=== PATIENT | female | born 2000 ===

== ENCOUNTER 2018-11-18 21:11 | Emergency (ER) | payer SELFPAY ==
[2018-11-18 22:30] VITALS: BP 120/77
[2018-11-18] MEDS ORDERED: ONDANSETRON 4 MG TAB.RAPDIS PO ONE (23:38)
[2018-11-18] MEDS ORDERED: OXYCODONE-ACETAMINOPHEN 5-325 MG TABLET PO ONE (23:38)
--- NOTE | 2018-11-18 23:40 | ER Document Report ---
ED Medical Screen (RME) - General Chief Complaint: Flank Pain Stated Complaint: LEFT FLANK PAIN Time Seen by Provider: 11/18/18 23:38 Notes: 18-year-old female with chief complaint of left flank pain that started this evening, radiates to the side but not to the abdomen, denies trauma, reports nausea with it. She denies vomiting, fever. Denies vaginal discharge or bleeding, reports intermittent mild dysuria. Denies history of kidney stones. Takes control, denies past medical history. TRAVEL OUTSIDE OF THE [place] IN LAST 30 DAYS: No - Related Data Allergies/Adverse Reactions: No Known Allergies Allergy (Unverified 11/18/18 21:12) Physical Exam - Vital signs Vitals: Temp Pulse Resp BP Pulse Ox 98.5 F 82 16 120/77 98 11/18/18 22:27 11/18/18 22:27 11/18/18 22:27 11/18/18 22:27 11/18/18 22:27 - Abdominal Inspection: Normal Tenderness: Nontender - Back Back: CVA tenderness - There does appear to be left-sided CVA tenderness, right is unremarkable Course - Re-evaluation Re-evalutation: I have greeted and performed a rapid initial assessment of this patient. A comprehensive ED assessment and evaluation of the patient, analysis of test results and completion of the medical decision making process will be conducted by additional ED providers. - Vital Signs Vital signs: Temp Pulse Resp BP Pulse Ox 98.5 F 82 16 120/77 98 11/18/18 22:27 11/18/18 22:27 11/18/18 22:27 11/18/18 22:27 11/18/18 22:27
[2018-11-19 00:36] LABS: ABSOLUTE EOSINOPHILS # (AUTO) 0.1 10^3/uL (0.0-0.6); ABSOLUTE LYMPHOCYTES (AUTO) 2.5 10^3/uL (0.5-4.7); ABSOLUTE MONOCYTES (AUTO) 0.5 10^3/uL (0.1-1.4); ABSOLUTE NEUT (AUTO) 4.4 10^3/uL (1.7-8.2); BASOPHILS % (AUTO) 0.6 % (0-2); EOSINOPHILS % (AUTO) 0.8 % (0-6); HEMATOCRIT 41.3 % (36.0-47.0); HEMOGLOBIN 13.9 g/dL (12.0-15.5); LYMPHOCYTES % (AUTO) 33.2 % (13-45); MEAN CORPUSCULAR HEMOGLOBIN 32.2 pg (27.0-33.4); MEAN CORPUSCULAR HGB CONC 33.7 g/dL (32.0-36.0); MEAN CORPUSCULAR VOLUME 95 fl (80-97); MONOCYTES % (AUTO) 7.2 % (3-13); PLATELET COUNT 267 10^3/uL (150-450); RED BLOOD COUNT 4.33 10^6/uL (3.72-5.28); RED CELL DISTRIBUTION WIDTH 13.2 % (11.5-14.0); SEGMENTED NEUTROPHILS % (AUTO) 58.2 % (42-78); TOTAL CELLS COUNTED % (AUTO) 100 %; WHITE BLOOD COUNT 7.6 10^3/uL (4.0-10.5)
[2018-11-19 00:40] LABS: AMORPHOUS SEDIMENT,URINE TRACE /HPF; APPEARANCE,URINE SLIGHTLY-CLOUDY; BILIRUBIN,URINE NEGATIVE (NEGATIVE); COLOR,URINE YELLOW; GLUCOSE, URINE NEGATIVE (NEGATIVE); KETONES,URINE NEGATIVE (NEGATIVE); LEUKOCYTE ESTERASE,URINE TRACE (NEGATIVE); NITRITE,URINE NEGATIVE (NEGATIVE); PROTEIN,URINE NEGATIVE (NEGATIVE); URINE SPECIFIC GRAVITY 1.011; UROBILINOGEN,URINE NEGATIVE mg/dL (<2.0)
[2018-11-19 00:55] LABS: ALANINE AMINOTRANSFERASE 21 U/L (9-52); ALBUMIN 4.5 g/dL (3.5-5.0); ALKALINE PHOSPHATASE 63 U/L (38-126); ANION GAP 10 (5-19); ASPARTATE AMINO TRANSFERASE 21 U/L (14-36); BILIRUBIN,DIRECT 0.2 mg/dL (0.0-0.4); BILIRUBIN,TOTAL 0.2 mg/dL (0.2-1.3); BLOOD UREA NITROGEN 10 mg/dL (7-20); CALCIUM 9.9 mg/dL (8.4-10.2); CARBON DIOXIDE 28 mmol/L (22-30); CHLORIDE 102 mmol/L (98-107); GLUCOSE 77 mg/dL (75-110); POTASSIUM 4.1 mmol/L (3.6-5.0); SODIUM 139.9 mmol/L (137-145); TOTAL PROTEIN 7.3 g/dL (6.3-8.2)
== END 2018-11-19 02:58 | disposition left against medical advice (07) ==
LOC: ER 21:11
DX: Z53.21 Procedure and treatment not carried out due to patient leaving prior to being seen by health care provider (principal); R10.9 Unspecified abdominal pain; R11.0 Nausea; R30.0 Dysuria
CPT/HCPCS: 99281; 36415; 84703; 85025; 80053; 81001; S0119

== ENCOUNTER 2019-02-13 20:05 | Inpatient (IN) | payer OTHER ==
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
[2019-02-13 20:56] LABS: ABSOLUTE BASOPHILS # (AUTO) 0.1 10^3/uL (0.0-0.2); ABSOLUTE LYMPHOCYTES (AUTO) 2.1 10^3/uL (0.5-4.7); ABSOLUTE MONOCYTES (AUTO) 0.5 10^3/uL (0.1-1.4); BASOPHILS % (AUTO) 0.8 % (0-2); EOSINOPHILS % (AUTO) 0.4 % (0-6); HEMATOCRIT 42.5 % (36.0-47.0); HEMOGLOBIN 14.3 g/dL (12.0-15.5); LYMPHOCYTES % (AUTO) 26.9 % (13-45); MEAN CORPUSCULAR HGB CONC 33.5 g/dL (32.0-36.0); MEAN CORPUSCULAR VOLUME 95 fl (80-97); MONOCYTES % (AUTO) 6.7 % (3-13); PLATELET COUNT 270 10^3/uL (150-450); RED BLOOD COUNT 4.46 10^6/uL (3.72-5.28); RED CELL DISTRIBUTION WIDTH 13.1 % (11.5-14.0); SEGMENTED NEUTROPHILS % (AUTO) 65.2 % (42-78); TOTAL CELLS COUNTED % (AUTO) 100 %; WHITE BLOOD COUNT 7.7 10^3/uL (4.0-10.5)
[2019-02-13 21:01] LABS: APPEARANCE,URINE CLEAR; BILIRUBIN,URINE NEGATIVE (NEGATIVE); COLOR,URINE STRAW; GLUCOSE, URINE NEGATIVE (NEGATIVE); KETONES,URINE NEGATIVE (NEGATIVE); LEUKOCYTE ESTERASE,URINE NEGATIVE (NEGATIVE); NITRITE,URINE NEGATIVE (NEGATIVE); PROTEIN,URINE NEGATIVE (NEGATIVE); URINE SPECIFIC GRAVITY 1.012; UROBILINOGEN,URINE NEGATIVE mg/dL (<2.0)
[2019-02-13 21:15] LABS: URINE AMPHETAMINES SCREEN NEGATIVE; URINE BARBITURATES SCREEN NEGATIVE; URINE BENZODIAZEPINES SCREEN NEGATIVE; URINE COCAINE SCREEN NEGATIVE; URINE MARIJUANA (THC) SCREEN NEGATIVE; URINE METHADONE SCREEN NEGATIVE; URINE PHENCYCLIDINE SCREEN NEGATIVE
[2019-02-13 21:21] LABS: ALBUMIN 4.6 g/dL (3.5-5.0); ALKALINE PHOSPHATASE 60 U/L (38-126); ANION GAP 13 (5-19); ASPARTATE AMINO TRANSFERASE 80 U/L (14-36); BILIRUBIN,DIRECT 0.2 mg/dL (0.0-0.4); BILIRUBIN,TOTAL 0.2 mg/dL (0.2-1.3); BLOOD UREA NITROGEN 14 mg/dL (7-20); CALCIUM 10.3 mg/dL (8.4-10.2); CARBON DIOXIDE 25 mmol/L (22-30); CHLORIDE 102 mmol/L (98-107); GLUCOSE 102 mg/dL (75-110); POTASSIUM 4.1 mmol/L (3.6-5.0); SALICYLATE 1.1 mg/dL (2.0-20.0); TOTAL PROTEIN 7.4 g/dL (6.3-8.2)
[2019-02-13] MEDS ORDERED: ACTIVATED CHARCOAL 25 GM BOTTLE PO ONE (21:26)
[2019-02-13 21:28] LABS: ALCOHOL < 10 mg/dL (NONE DETECTED)
[2019-02-13] MEDS ORDERED: ACETYLCYSTEINE 20% SOLN 800 MG/4 ML VIAL.NEB PO ONE (21:28)
--- NOTE | 2019-02-13 21:29 | ER Document Report ---
ED General - General Chief Complaint: Overdose Stated Complaint: TOOK EXTRA TYLENOL Time Seen by Provider: 02/13/19 20:21 Notes: 18-year-old female depression presents with Tylenol overdose. Took about 25 tablets of 500 Milgram Tylenol at about 8 PM. No vomiting no coingestions. Has mild nausea and stomach pain. She is had this in the past. She has had suicidal ideation in the past. She comes in with family member. TRAVEL OUTSIDE OF THE [place] IN LAST 30 DAYS: No - Related Data Allergies/Adverse Reactions: No Known Allergies Allergy (Unverified 11/18/18 21:12) Past Medical History - Social History Smoking Status: Never Smoker Chew tobacco use (# tins/day): No Frequency of alcohol use: Occasional Drug Abuse: None Family History: None Patient has suicidal ideation: Yes Patient has homicidal ideation: No Renal/ Medical History: Denies: Hx Peritoneal Dialysis Psychiatric Medical History: Reports: Hx Depression Review of Systems - Review of Systems Notes: REVIEW OF SYSTEMS GEN: Denies fever, chills, weight loss ENT: Denies sore throat, nasal discharge, ear pain EYES: Denies blurry vision, eye pain, discharge CV: Denies chest pain, palpitations, edema RESP: Denies cough, shortness of breath, wheezing GI: Aminal pain and nausea MSK: Denies joint pain/swelling, edema, SKIN: Denies rash, skin lesions LYMPH: Denies swollen glands/lymph nodes NEURO: Denies headache, focal weakness or numbness, dizziness PSYCH: Denies depression, suicidal or homicidal ideation PHYSICAL EXAMINATION General: No acute distress, well-nourished Head: Atraumatic, normocephalic ENT: Mouth normal, oropharynx moist, no exudates or tonsillar enlargement Eyes: Conjunctiva normal, pupils equal, lids normal Neck: No JVD, supple, no guarding CVS: Normal rate, regular rhythm, no murmurs Resp: No resp distress, equal and normal breath sounds bilaterally GI: Nondistended, soft, no tenderness to palpation, no rebound or guarding Ext: No deformities, no edema, normal range of motion in upper and lower ext Back: No CVA or midline TTP Skin: No rash, warm Lymphatic: No lymphadeopathy noted Neuro: Awake, alert. Face symmetric. GCS 15. Physical Exam - Vital signs Vitals: Temp Pulse Resp BP Pulse Ox 98.2 F 96 14 117/69 97 02/13/19 20:20 02/13/19 20:20 02/13/19 20:20 02/13/19 20:20 02/13/19 20:20 Course - Re-evaluation Re-evalutation: 02/13/19 21:28 Purposeful Tylenol overdose which may approach the toxic dose for her weight. I will give her activated charcoal immediately. A 4-hour Tylenol level will be drawn about 10:15 PM. We will also check LFTs and consider giving knack, will give poison control guidance. 02/13/19 23:36 Patient's Tylenol level is elevated. She already got charcoal and will now receive N-acetylcysteine orally. She tolerated this well. Her LFTs are normal. I have ordered every 4 acetylcysteine per poison control. Initially I spoke with [facility] to transfer her up and I spoke with hospitalist Dr. Ortega, who states that she can be admitted here. I placed her on IVC papers. - Vital Signs Vital signs: Temp Pulse Resp BP Pulse Ox 98.2 F 96 14 117/69 97 02/13/19 20:20 02/13/19 20:20 02/13/19 20:20 02/13/19 20:20 02/13/19 20:20 - Laboratory Result Diagrams: 02/13/19 20:45 02/13/19 20:45 Laboratory results interpreted by me: 02/13/19 02/13/19 20:45 20:45 Calcium 10.3 H AST 80 H Salicylates 1.1 L Acetaminophen 150 H* - EKG Interpretation by Me EKG shows normal: Sinus rhythm Rate: Normal Rhythm: NSR Critical Care Note - Critical Care Note Total time excluding time spent on procedures (mins): 32 Comments: The above patient is critically ill. Not including procedures, but including direct re-evaluations, speaking with patient and/or consultants, interpreting results, and documenting, I spent the total amount of minute listed listed above on critical care time Discharge - Discharge Clinical Impression: Tylenol overdose Qualifiers: Encounter type: initial encounter Injury intent: intentional self-harm Qualified Code(s): T39.1X2A - Poisoning by 4-Aminophenol derivatives, intentional self-harm, initial encounter Condition: Good Disposition: ADMITTED INPATIENT Admitting Provider: Doroteo (Hospitalist) Unit Admitted: Telemetry
[2019-02-13] MEDS ORDERED: ONDANSETRON HCL INJ/PF 4 MG/2 ML SDV IV PRN (23:28)
[2019-02-13] MEDS ORDERED: MAG HYDROX/AL HYDROX/SIMETH SUSP 30 ML UDCUP PO PRN (23:28)
[2019-02-13] MEDS ORDERED: MAGNESIUM HYDROXIDE SUSP 30 ML UDCUP PO PRN (23:28)
--- NOTE | 2019-02-14 00:32 | EKG REPORT ---
SEVERITY:- NORMAL ECG - SINUS RHYTHM : Confirmed by: Cyrus Jones 14-Feb-2019 00:32:23
[2019-02-14 00:48] LABS: INTERNATIONAL RATION (INR) 0.93; PROTHROMBIN TIME 12.5 SEC (11.4-15.4)
[2019-02-14 00:49] LABS: PARTIAL THROMBOPLASTIN TIME 27.1 SEC (23.5-35.8)
--- NOTE | 2019-02-14 00:53 | PDOC H&P ---
History of Present Illness Admission Date/PCP: 02/13/19 23:29 Patient complains of: I could not tolerate the pain and took 25 Tylenol tablets History of Present Illness: REGAN JOYA is a 18 year old female with a history of bipolar disorder diagnosed about 5 years ago for which she is not getting any current management, who presented to the emergency room after taking 25 tablets of Tylenol 500 mg each. She stated that she was trying to get the pain away but partly admitted that she has had an argument with her as well as 2 previ ous suicide attempt 5 years ago when she was diagnosed with bipolar. She admitted to nausea without vomiting. She has been having occasional dysuria. She stated that her pain is been in both hips and occasionally in her lower abdomen. She denies any hematuria or urinary frequency or urgency. She has mild headache without dizziness or blurred vision. She denies any fever or chills. Upon presentation to the emergency room, blood pressure was 128/90 with a pulse of 86 and respiratory rate of 28 and later 14, pulse oximetry 100% on room air. LabS revealed a Tylenol level of 150 and were otherwise remarkable for AST of 80 with normal ALT of 30 and alk phos of 60 and total bili of 0.2. Calcium was 10.3. CBC and CMP otherwise were within normal. I ordered stat coagulation profile including PT/INR. EKG showed normal sinus rhythm with a rate of 79. The patient had involuntary commitment by the ER physician. The patient was given 25 g of p.o. charcoal and 850 mg p.o. Mucomyst was ordered 70 mg/kg p.o. every 4 hours. She will be admitted to a medically monitored bed for further management of Tylenol toxicity. Past Medical History Psychiatric Medical History: Reports: Bipolar Disorder, Depression - Previous suicide attempt 5 years ago Past Surgical History Past Surgical History: Reports: Other - [place] tooth extraction Social History Smoking Status: Former Smoker Frequency of Alcohol Use: Rare Drugs: None Hx Prescription Drug Abuse: No Family History Family History: CAD, CVA, DM, Malignancy Parental Family History Reviewed: Yes Children Family History Reviewed: Yes Sibling(s) Family History Reviewed.: Yes Medication/Allergy Home Medications: No Home Medications 02/13/19 Allergies/Adverse Reactions: No Known Allergies Allergy (Unverified 11/18/18 21:12) Review of Systems Review of Systems: As per history of present illness. All pertinent systems were reviewed above. Constitutional, HEENT, cardiovascular, respiratory, GI, , musculoskeletal, neuro, psychiatric, endocrine, integumentary and hematologic systems were reviewed and are otherwise negative/unremarkable except for positive findings mentioned above in the HPI. Physical Exam Vital Signs: Temp Pulse Resp BP Pulse Ox 98.2 F 96 13 113/69 98 02/13/19 20:20 02/13/19 20:20 02/14/19 00:01 02/14/19 00:00 02/14/19 00:01 Intake & Output 02/12/19 02/13/19 02/14/19 06:59 06:59 06:59 Weight 86.183 kg Exam: Generally: Pleasant young female in no acute distress. She has good eye contact Vital signs-as listed Head - atraumatic, normocephalic. Pupils - equal, round and reactive to light and accommodation. Extraocular movements are intact. No scleral icterus. Oropharynx - moist mucous membranes and tongue. No pharyngeal erythema or exudate. Neck - supple. No JVD. Carotid pulses 2+ bilaterally. No carotid bruits. No palpable thyromegaly or lymphadenopathy. Cardiovascular - regular rate and rhythm. Normal S1 and S2. No murmurs, gallops or rubs. Lungs - clear to auscultation bilaterally. Abdomen - soft and nontender. Positive bowel sounds. No palpable organomegaly or masses. Extremities - no pitting edema, clubbing or cyanosis. Neuro - grossly non-focal. Psychiatric-she had good eye contact, with with slightly depressed affect Skin - no rashes. Breast, pelvic and rectal - deferred Results Laboratory Results: 02/13/19 20:45 02/13/19 20:45 02/13/19 02/13/19 02/13/19 20:45 20:45 20:45 WBC 7.7 RBC 4.46 Hgb 14.3 Hct 42.5 MCV 95 MCH 32.0 MCHC 33.5 RDW 13.1 Plt Count 270 Seg Neutrophils % 65.2 Lymphocytes % 26.9 Monocytes % 6.7 Eosinophils % 0.4 Basophils % 0.8 Absolute Neutrophils 5.0 Absolute Lymphocytes 2.1 Absolute Monocytes 0.5 Absolute Eosinophils 0.0 Absolute Basophils 0.1 Sodium 139.6 Potassium 4.1 Chloride 102 Carbon Dioxide 25 Anion Gap 13 BUN 14 Creatinine 0.85 Est GFR ( Amer) > 60 Est GFR (Non-Af Amer) > 60 Glucose 102 Calcium 10.3 H Total Bilirubin 0.2 AST 80 H Alkaline Phosphatase 60 Total Protein 7.4 Albumin 4.6 Urine Color STRAW Urine Appearance CLEAR Urine pH 7.0 Ur Specific [place] 1.012 Urine Protein NEGATIVE Urine Glucose (UA) NEGATIVE Urine Ketones NEGATIVE Urine Blood NEGATIVE Urine Nitrite NEGATIVE Ur Leukocyte Esterase NEGATIVE Urine WBC (Auto) 1 Urine RBC (Auto) 1 Assessment and Plan - Diagnosis (1) Tylenol toxicity Is this a current diagnosis for this admission?: Yes Plan: We will follow Tylenol monogram. She will be managed with Mucomyst 70 mg/kg every 4 hours for 17 doses. Will follow Tylenol levels (2) Suicide attempt Is this a current diagnosis for this admission?: Yes Plan: This is likely the culprit for her tylenol overdose. The patient will be placed on suicide precautions. She will have a sitter. Psychiatry consult will be obtained. (3) Bipolar disorder Is this a current diagnosis for this admission?: Yes Plan: She has not been on treatment for 5 years. Psychiatry consult to be obtained. (4) DVT prophylaxis Is this a current diagnosis for this admission?: Yes Plan: Subcutaneous Lovenox should her INR come back normal - Time Time Spent with patient: 35 or more minutes Medications reviewed and adjusted accordingly: Yes Anticipated discharge: Other - psych discharge likely, s/p IVC - Inpatient Certification Based on my medical assessment, after consideration of the patient's comorbidities, presenting symptoms, or acuity I expect that the services needed warrant INPATIENT care.: Yes I certify that my determination is in accordance with my understanding of Medicare's requirements for reasonable and necessary INPATIENT services [42 CFR 412.3e].: Yes Medical Necessity: Need Close Monitoring Due to Risk of Patient Decompensation, Risk of Complication if Not Cared For in Hospital, Other - SUICIDAL Post Hospital Care: D/C or Transfer Summary - Plan Summary Plan Summary: The plan of care was discussed in details with the patient. I answered all questions. The patient agreed to proceed with the above-mentioned plan. The patient is presumably full code. This note was created by [employer] software and may contain typo errors that may have not been proofread.
[2019-02-14] MEDS ORDERED: ACETYLCYSTEINE 20% SOLN 6000 MG/30 ML VIAL PO SCH (01:30)
[2019-02-14] MEDS: NORMAL SALINE 1000 ML 1,000 ML IV PRN ×3 (03:04→22:29)
[2019-02-14 04:17] LABS: PROTHROMBIN TIME 13.2 SEC (11.4-15.4)
[2019-02-14 04:25] LABS: ABSOLUTE LYMPHOCYTES (AUTO) 1.8 10^3/uL (0.5-4.7); ABSOLUTE MONOCYTES (AUTO) 0.4 10^3/uL (0.1-1.4); ABSOLUTE NEUT (AUTO) 3.4 10^3/uL (1.7-8.2); BASOPHILS % (AUTO) 0.6 % (0-2); EOSINOPHILS % (AUTO) 0.2 % (0-6); HEMATOCRIT 38.8 % (36.0-47.0); HEMOGLOBIN 13.3 g/dL (12.0-15.5); LYMPHOCYTES % (AUTO) 32.4 % (13-45); MEAN CORPUSCULAR HGB CONC 34.2 g/dL (32.0-36.0); MEAN CORPUSCULAR VOLUME 94 fl (80-97); MONOCYTES % (AUTO) 6.3 % (3-13); PLATELET COUNT 251 10^3/uL (150-450); RED BLOOD COUNT 4.14 10^6/uL (3.72-5.28); RED CELL DISTRIBUTION WIDTH 13.2 % (11.5-14.0); SEGMENTED NEUTROPHILS % (AUTO) 60.5 % (42-78); TOTAL CELLS COUNTED % (AUTO) 100 %; WHITE BLOOD COUNT 5.6 10^3/uL (4.0-10.5)
[2019-02-14 04:28] LABS: ALKALINE PHOSPHATASE 54 U/L (38-126); ANION GAP 11 (5-19); ASPARTATE AMINO TRANSFERASE 62 U/L (14-36); BILIRUBIN,DIRECT 0.3 mg/dL (0.0-0.4); BILIRUBIN,TOTAL 0.4 mg/dL (0.2-1.3); BLOOD UREA NITROGEN 12 mg/dL (7-20); CALCIUM 9.3 mg/dL (8.4-10.2); CARBON DIOXIDE 21 mmol/L (22-30); CHLORIDE 107 mmol/L (98-107); GLUCOSE 102 mg/dL (75-110); TOTAL PROTEIN 6.7 g/dL (6.3-8.2)
[2019-02-14] MEDS ORDERED: ACETYLCYSTEINE 20% SOLN 6000 MG/30 ML VIAL PO ONE (04:30)
[2019-02-14] MEDS: ACETYLCYSTEINE 20% SOLN 6000 MG/30 ML VIAL PO SCH ×4 (09:46→20:56)
[2019-02-14] MEDS: ENOXAPARIN SODIUM INJ 40 MG/0.4 ML DISP.SYRIN SUBCUT SCH (09:47)
--- NOTE | 2019-02-14 13:10 | PDOC PROGRESS REPORT ---
Subjective Progress Note for:: 02/14/19 Subjective:: This is 19 years old [place] female patient presented after she overdosed herself with 25 tablets of Tylenol. There is an element of suicide attempt. And IVCed by psych. Patient was diagnosed with bipolar disorder and she was 15 years ago and patient has been on any medication. Patient reports this her mom has mental health issues. Patient has been managed accordingly with hydration and N-acetylcysteine. Her lab evaluation shows that her Tylenol level has decreased from 1 50-70 and her mildly elevated AST also reduced from 8262. Patient seen awake alert oriented x4. She is not in pain or distress. Reason For Visit: TYLENOL OVERDOSE Physical Exam Vital Signs: Temp Pulse Resp BP Pulse Ox 98.2 F 83 18 118/67 100 02/14/19 11:17 02/14/19 11:17 02/14/19 11:17 02/14/19 11:17 02/14/19 11:17 Intake & Output 02/13/19 02/14/19 02/15/19 06:59 06:59 06:59 Intake Total 943 Balance 943 Weight 85.6 kg General appearance: PRESENT: no acute distress Eye exam: PRESENT: conjunctiva pink Neck exam: ABSENT: carotid bruit, JVD, lymphadenopathy, thyromegaly Respiratory exam: PRESENT: clear to auscultation kendall. ABSENT: rales, rhonchi, wheezes Cardiovascular exam: PRESENT: RRR. ABSENT: diastolic murmur, rubs, systolic murmur GI/Abdominal exam: PRESENT: normal bowel sounds, soft. ABSENT: distended, guarding, mass, organolmegaly, rebound, tenderness Neurological exam: PRESENT: alert, awake, oriented to person, oriented to place, oriented to time, oriented to situation Results Laboratory Results: 02/14/19 04:04 02/14/19 04:04 02/13/19 02/13/19 02/13/19 20:45 20:45 20:45 WBC 7.7 RBC 4.46 Hgb 14.3 Hct 42.5 MCV 95 MCH 32.0 MCHC 33.5 RDW 13.1 Plt Count 270 Seg Neutrophils % 65.2 Lymphocytes % 26.9 Monocytes % 6.7 Eosinophils % 0.4 Basophils % 0.8 Absolute Neutrophils 5.0 Absolute Lymphocytes 2.1 Absolute Monocytes 0.5 Absolute Eosinophils 0.0 Absolute Basophils 0.1 Sodium 139.6 Potassium 4.1 Chloride 102 Carbon Dioxide 25 Anion Gap 13 BUN 14 Creatinine 0.85 Est GFR ( Amer) > 60 Est GFR (Non-Af Amer) > 60 Glucose 102 Calcium 10.3 H Total Bilirubin 0.2 AST 80 H Alkaline Phosphatase 60 Total Protein 7.4 Albumin 4.6 Urine Color STRAW Urine Appearance CLEAR Urine pH 7.0 Ur Specific [place] 1.012 Urine Protein NEGATIVE Urine Glucose (UA) NEGATIVE Urine Ketones NEGATIVE Urine Blood NEGATIVE Urine Nitrite NEGATIVE Ur Leukocyte Esterase NEGATIVE Urine WBC (Auto) 1 Urine RBC (Auto) 1 02/14/19 02/14/19 04:04 04:04 WBC 5.6 RBC 4.14 Hgb 13.3 Hct 38.8 MCV 94 MCH 32.0 MCHC 34.2 RDW 13.2 Plt Count 251 Seg Neutrophils % 60.5 Lymphocytes % 32.4 Monocytes % 6.3 Eosinophils % 0.2 Basophils % 0.6 Absolute Neutrophils 3.4 Absolute Lymphocytes 1.8 Absolute Monocytes 0.4 Absolute Eosinophils 0.0 Absolute Basophils 0.0 Sodium 138.7 Potassium 4.0 Chloride 107 Carbon Dioxide 21 L Anion Gap 11 BUN 12 Creatinine 0.75 Est GFR ( Amer) > 60 Est GFR (Non-Af Amer) > 60 Glucose 102 Calcium 9.3 Total Bilirubin 0.4 AST 62 H Alkaline Phosphatase 54 Total Protein 6.7 Albumin 4.0 Urine Color Urine Appearance Urine pH Ur Specific [place] Urine Protein Urine Glucose (UA) Urine Ketones Urine Blood Urine Nitrite Ur Leukocyte Esterase Urine WBC (Auto) Urine RBC (Auto) Assessment and Plan - Diagnosis (1) Tylenol overdose with suicide intention Is this a current diagnosis for this admission?: Yes Plan: Continue N-acetylcysteine. We will follow-up with Poison Control Center. Continue hydration (2) Bipolar disorder Is this a current diagnosis for this admission?: Yes Plan: Management per psych.
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
[2019-02-15] MEDS: ACETYLCYSTEINE 20% SOLN 6000 MG/30 ML VIAL PO SCH ×2 (00:06→04:20)
[2019-02-15 03:13] LABS: ABSOLUTE EOSINOPHILS # (AUTO) 0.1 10^3/uL (0.0-0.6); ABSOLUTE LYMPHOCYTES (AUTO) 2.8 10^3/uL (0.5-4.7); ABSOLUTE MONOCYTES (AUTO) 0.6 10^3/uL (0.1-1.4); ABSOLUTE NEUT (AUTO) 2.6 10^3/uL (1.7-8.2); BASOPHILS % (AUTO) 0.4 % (0-2); EOSINOPHILS % (AUTO) 0.9 % (0-6); HEMATOCRIT 39.2 % (36.0-47.0); HEMOGLOBIN 13.1 g/dL (12.0-15.5); MEAN CORPUSCULAR HEMOGLOBIN 31.6 pg (27.0-33.4); MEAN CORPUSCULAR HGB CONC 33.5 g/dL (32.0-36.0); MEAN CORPUSCULAR VOLUME 94 fl (80-97); MONOCYTES % (AUTO) 9.2 % (3-13); PLATELET COUNT 230 10^3/uL (150-450); RED BLOOD COUNT 4.16 10^6/uL (3.72-5.28); RED CELL DISTRIBUTION WIDTH 13.2 % (11.5-14.0); SEGMENTED NEUTROPHILS % (AUTO) 43.5 % (42-78); TOTAL CELLS COUNTED % (AUTO) 100 %; WHITE BLOOD COUNT 6.1 10^3/uL (4.0-10.5)
[2019-02-15 03:18] LABS: INTERNATIONAL RATION (INR) 1.14; PROTHROMBIN TIME 14.7 SEC (11.4-15.4)
[2019-02-15 03:39] LABS: ALBUMIN 3.6 g/dL (3.5-5.0); ALKALINE PHOSPHATASE 42 U/L (38-126); ANION GAP 8 (5-19); ASPARTATE AMINO TRANSFERASE 33 U/L (14-36); BILIRUBIN,DIRECT 0.2 mg/dL (0.0-0.4); BILIRUBIN,TOTAL 0.2 mg/dL (0.2-1.3); BLOOD UREA NITROGEN 8 mg/dL (7-20); CALCIUM 8.8 mg/dL (8.4-10.2); CARBON DIOXIDE 20 mmol/L (22-30); CHLORIDE 110 mmol/L (98-107); GLUCOSE 79 mg/dL (75-110); POTASSIUM 4.7 mmol/L (3.6-5.0); TOTAL PROTEIN 6.2 g/dL (6.3-8.2)
[2019-02-15] MEDS: FLUOXETINE HCL 20 MG CAPSULE PO SCH (11:36)
[2019-02-15] MEDS: ENOXAPARIN SODIUM INJ 40 MG/0.4 ML DISP.SYRIN SUBCUT SCH (11:39)
--- NOTE | 2019-02-15 14:35 | Progress Note Acknowledgement ---
Progress Note Acknowledgement Progess Note Acknowledgement: I, the undersigned member of the medical staff with appropriate privileges and with supervisory authority over [ PAC ], a dependent practice allied health professional, acknowledge that I have reviewed the progress notes entered on this patient, and in my professional judgment believe that the assessment made and/or any care evidenced was appropriate
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
[2019-02-15] MEDS ORDERED: MAGNESIUM CITRATE 296 ML BOTTLE PO PRN (16:51)
[2019-02-15] MEDS: OLANZAPINE 2.5 MG TABLET PO SCH (17:02)
[2019-02-15] MEDS: DOCUSATE SODIUM 100 MG CAPSULE PO SCH (17:04)
--- NOTE | 2019-02-15 17:25 | PSYCHOLOGICAL NOTE ---
Psych Note - Psych Note Date seen by psych provider: 02/15/19 Time seen by psych provider: 13:23 - Discussion with attending Hospitalist about medical celarance at 1323. Psych Note: Presenting Problem: Tylenol OD, Acetaminophen level was 150 initially. Spoke to attending Hospitalist who identified patient was medically cleared. he also noted medications were just started today. Completed IVC paperwork (1st exam was completed yesterday but not signed by hospitalist). Got First Exam signed since patient officially medically cleared and can seek inpatient hospitalization. [facility] Music Professor went to floor to put IVC paperwork on physical chart. Patient had a doctor and another individual in her room. Attending nurse made aware of plan of care. Diagnosis: Relationship Distress with Spouse MDD R/O Bipolar Impression/Plan: Recommendation for full IVC. Patient had an OD, has relationship distress with spouse, and has Hx of MH and no treatment in 5 years. Medication recommendations were just started today per attending hospitalist. Consulted with Dr. Willoughby regarding the management and care of patient. Attending Hospitalist made aware of recommendations.
[2019-02-16 08:05] LABS: ABSOLUTE EOSINOPHILS # (AUTO) 0.1 10^3/uL (0.0-0.6); ABSOLUTE LYMPHOCYTES (AUTO) 2.2 10^3/uL (0.5-4.7); ABSOLUTE MONOCYTES (AUTO) 0.3 10^3/uL (0.1-1.4); ABSOLUTE NEUT (AUTO) 2.7 10^3/uL (1.7-8.2); BASOPHILS % (AUTO) 0.5 % (0-2); EOSINOPHILS % (AUTO) 1.2 % (0-6); HEMATOCRIT 40.8 % (36.0-47.0); HEMOGLOBIN 13.6 g/dL (12.0-15.5); LYMPHOCYTES % (AUTO) 41.4 % (13-45); MEAN CORPUSCULAR HEMOGLOBIN 31.6 pg (27.0-33.4); MEAN CORPUSCULAR HGB CONC 33.2 g/dL (32.0-36.0); MEAN CORPUSCULAR VOLUME 95 fl (80-97); MONOCYTES % (AUTO) 6.1 % (3-13); PLATELET COUNT 251 10^3/uL (150-450); RED CELL DISTRIBUTION WIDTH 13.4 % (11.5-14.0); SEGMENTED NEUTROPHILS % (AUTO) 50.8 % (42-78); TOTAL CELLS COUNTED % (AUTO) 100 %; WHITE BLOOD COUNT 5.3 10^3/uL (4.0-10.5)
[2019-02-16 08:16] LABS: INTERNATIONAL RATION (INR) 0.99; PROTHROMBIN TIME 13.1 SEC (11.4-15.4)
[2019-02-16 08:33] LABS: ALBUMIN 3.8 g/dL (3.5-5.0); ALKALINE PHOSPHATASE 55 U/L (38-126); ANION GAP 9 (5-19); ASPARTATE AMINO TRANSFERASE 28 U/L (14-36); BILIRUBIN,DIRECT 0.2 mg/dL (0.0-0.4); BILIRUBIN,TOTAL 0.2 mg/dL (0.2-1.3); BLOOD UREA NITROGEN 10 mg/dL (7-20); CARBON DIOXIDE 22 mmol/L (22-30); CHLORIDE 108 mmol/L (98-107); GLUCOSE 80 mg/dL (75-110); POTASSIUM 4.7 mmol/L (3.6-5.0); TOTAL PROTEIN 6.4 g/dL (6.3-8.2)
[2019-02-16] MEDS: FLUOXETINE HCL 20 MG CAPSULE PO SCH (10:00)
[2019-02-16] MEDS: OLANZAPINE 2.5 MG TABLET PO SCH (10:00)
[2019-02-16] MEDS: DOCUSATE SODIUM 100 MG CAPSULE PO SCH (10:00)
[2019-02-16] MEDS: ENOXAPARIN SODIUM INJ 40 MG/0.4 ML DISP.SYRIN SUBCUT SCH (10:13)
[2019-02-16 12:20] VITALS: BP 101/51
--- NOTE | 2019-02-16 18:33 | PDOC DISCHARGE SUMMARY ---
General - Admit/Disc Date/PCP Admission Date/Primary Care Provider: 02/13/19 23:29 She was admitted on 02/13/2019 for acetaminophen overdose Discharge Date: 02/16/19 - Discharge Diagnosis (1) Suicide attempt Is this a current diagnosis for this admission?: Yes Summary: Patient states she has no desire to try and commit suicide again. This is patient's second attempt the first was 5 years ago when she was 13. She has been in place involuntary commitment by psychiatry (2) Tylenol overdose Is this a current diagnosis for this admission?: Yes Summary: When patient was admitted her acetaminophen level was 150, and then went down to 70 went down to 40 and at discharge was less than 10 at all other toxicologies were negative (3) Depression Is this a current diagnosis for this admission?: Yes Summary: She has a history of bipolar depression. Psychiatry recommended starting her on medications and she was started on Prozac 20 mg a day and Zyprexa 2.5 mg a day - Additional Information Resuscitation Status: Full Code Discharge Diet: As Tolerated Discharge Activity: Activity As Tolerated Home Medications: No Home Medications 02/13/19 History of Present Illness History of Present Illness: REGAN JOYA is a 18 year old female Patient was admitted to the hospital for acetaminophen overdose. Patient states she took about 25 tablets, 500 mg each the emergency room patient was given 25 g of charcoal and 850 mg of Mucomyst was ordered 70 mg/kg every 4 hours patient was admitted for medically monitored bed. Patient had no complications as result of her overdose. Hospital Course Hospital Course: Patient's liver functions were slightly elevated on admission her AST was 80 however this went down to 28 her ALT was 30 this went down to 19 total protein was 7.4 went down to 6.4 albumin was 4.6 went down to 3.8 early Jace was co mpletely normal. She was seen by psychiatry and they felt that patient needed to be IVC, and I agreed. Patient is 18 years old she has a 1-year-old child at home and she has a who is in the . Patient is going through a difficult time now concerning her marriage and has no real insight into her depression Physical Exam Vital Signs: Temp Pulse Resp BP Pulse Ox 98.2 F 84 14 101/51 L 99 02/16/19 11:20 02/16/19 11:20 02/16/19 11:20 02/16/19 11:20 02/16/19 11:20 Intake & Output 02/15/19 02/16/19 02/17/19 06:59 06:59 06:59 Intake Total 1940 1600 Balance 1940 1600 Weight 84.8 kg 84.1 kg General appearance: PRESENT: no acute distress, well-developed, well-nourished Head exam: PRESENT: atraumatic, normocephalic Respiratory exam: PRESENT: clear to auscultation kendall. ABSENT: rales, rhonchi, wheezes Cardiovascular exam: PRESENT: RRR. ABSENT: diastolic murmur, rubs, systolic murmur GI/Abdominal exam: PRESENT: normal bowel sounds, soft. ABSENT: distended, guarding, mass, organolmegaly, rebound, tenderness Neurological exam: PRESENT: alert, awake, oriented to person, oriented to place, oriented to time, oriented to situation, CN II-XII grossly intact. ABSENT: motor sensory deficit Psychiatric exam: PRESENT: flat affect, other - Patient's mood and affect seem to change pretty much day by day. Some days she was talkative some days she was very quiet and withdrawn. Patient however never expressed any suicidal or homicidal ideations while in the hospital Results Laboratory Results: 02/16/19 07:10 02/16/19 07:10 02/16/19 02/16/19 07:10 07:10 WBC 5.3 RBC 4.30 Hgb 13.6 Hct 40.8 MCV 95 MCH 31.6 MCHC 33.2 RDW 13.4 Plt Count 251 Seg Neutrophils % 50.8 Lymphocytes % 41.4 Monocytes % 6.1 Eosinophils % 1.2 Basophils % 0.5 Absolute Neutrophils 2.7 Absolute Lymphocytes 2.2 Absolute Monocytes 0.3 Absolute Eosinophils 0.1 Absolute Basophils 0.0 Sodium 138.7 Potassium 4.7 Chloride 108 H Carbon Dioxide 22 Anion Gap 9 BUN 10 Creatinine 0.69 Est GFR ( Amer) > 60 Est GFR (Non-Af Amer) > 60 Glucose 80 Calcium 9.0 Total Bilirubin 0.2 AST 28 Alkaline Phosphatase 55 Total Protein 6.4 Albumin 3.8 Qualifiers - * PATIENT BEING DISCHARGED WITH ANY OF THE FOLLOWING DIAGNOSIS: No Acute Heart Failure - Is this a Heart Failure Patient?: No Plan Discharge Plan: Patient is being escorted by local law enforcement to [facility] which is a psychiatric inpatient facility. Patient has IVC papers for 7 to 14 days. Initially patient was somewhat hesitant and resistant to this idea, however after further discussion patient seemed to accept the need for this Time Spent: Greater than 30 Minutes
== END 2019-02-16 13:01 | DRG 918 ==
LOC: ER 20:05 → EH 23:29 → 3S 02-14 02:50
PROVIDERS: ADMIT Family Medicine; ATTEND Family Medicine
DX: T39.1X2A Poisoning by 4-Aminophenol derivatives, intentional self-harm, initial encounter (principal); F31.9 Bipolar disorder, unspecified; R30.0 Dysuria; M25.552 Pain in left hip; M25.551 Pain in right hip; R10.30 Lower abdominal pain, unspecified; Z87.891 Personal history of nicotine dependence
CPT/HCPCS: 36415; 80053; 80307; 81001; 81025; 85025; 85610; 85730; 93005; 93010; 99291; J1650; J2405; J3490; J7030; J7604